=== PATIENT | female | born 1990 | race Caucasian/White ===

== ENCOUNTER 2021-09-25 14:49 | Inpatient (IN) | payer OTHER ==
[~2021-09-25 14:49] MED LIST: Bupivacaine/Epinephrine 0.25% 30 ML VIAL ONE; ePHEDrine Sulfate 50 MG/10 ML VIAL ONE
[2021-09-25] MEDS ORDERED: hydrALAZINE 20 MG/ML VIAL SLOW IVP PRN ×2 (15:28→20:54)
[2021-09-25] MEDS ORDERED: Butorphanol Tartrate 1 MG/ML VIAL SLOW IVP PRN (15:28)
[2021-09-25] MEDS ORDERED: Acetaminophen 500 MG TAB PO PRN (15:28)
[2021-09-25] MEDS ORDERED: HYDROcodone/Acetaminophen 5/325 mg Tablet PO PRN ×4 (15:28→20:54)
[2021-09-25] MEDS ORDERED: Ondansetron PF 4 MG/2 ML Vial IVP PRN ×3 (15:28→20:54)
[2021-09-25] MEDS ORDERED: Ibuprofen 800 MG TAB PO PRN (15:28)
[2021-09-25] MEDS ORDERED: Diphenoxylate HCl/Atropine Tablet PO PRN (15:28)
[2021-09-25] MEDS ORDERED: Promethazine HCl 25 MG/ML VIAL IM PRN ×2 (15:28→16:59)
[2021-09-25] MEDS ORDERED: Lidocaine 1% (PF) 30 ML VIAL SC PRN (15:28)
[2021-09-25] MEDS ORDERED: Methylergonovine 0.2 MG/ML VIAL IM PRN (15:28)
[2021-09-25] MEDS ORDERED: Carboprost 250 MCG/ML AMP IM PRN (15:28)
[2021-09-25] MEDS ORDERED: NS w/ Oxytocin 30 units 500 ML IV SCH ×2 (15:30)
[2021-09-25] MEDS ORDERED: Lactated Ringer's 1,000 ML IV SCH (15:30)
[2021-09-25 15:48] VITALS: BMI 24.6
[2021-09-25 15:50] LABS: Hemoglobin 12.8 g/dL (12.0-15.5); Mean Corpuscular HGB CONC 35.4 g/dL (32.0-36.0); Mean Corpuscular Hemoglobin 30.1 pg (27.0-33.0); Mean Corpuscular Volume 85.2 fl (81.6-98.3); Mean Platelet Volume 11.1 fl (7.4-10.4); Platelet Count 246 10x3/uL (150-450); RBC Distribution Width 13.1 % (11.5-14.5); Red Blood Cell (RBC) Count 4.25 10x6/uL (3.90-5.03); White Blood Cell (WBC) Count 11.2 10x3/uL (3.5-10.5)
[2021-09-25] MEDS ORDERED: Fentanyl 2 mcg/Bup 0.1% Cadd 100 ML ONE (16:10)
[2021-09-25 16:24] LABS: Hep B Surf Ag Non-Reactive S/CO (NonReactive); Syphilis Antibody Nonreactive (Nonreactive); Syphilis Antibody Index 0.07 S/CO (<1.00 Non-Reactive)
[2021-09-25] MEDS ORDERED: PHENYLEPHRINE-NS 100 MCG/ML 10 ML SYRINGE ONE (16:43)
[2021-09-25] MEDS ORDERED: diphenhydrAMINE 50 MG/ML VIAL IVP PRN (16:59)
[2021-09-25] MEDS ORDERED: ePHEDrine Sulfate 50 MG/10 ML VIAL SLOW IVP PRN (16:59)
[2021-09-25] MEDS ORDERED: Moisturizing Cream (Eucerin) 113 GM JAR TOP PRN (16:59)
[2021-09-25] MEDS ORDERED: Acetaminophen 325 MG TAB PO PRN (16:59)
[2021-09-25] MEDS ORDERED: Lactated Ringer's 500 ML IV PRN (16:59)
[2021-09-25] MEDS ORDERED: Naloxone HCl 0.4 mg/ml Vial IVP PRN ×2 (16:59)
[2021-09-25] MEDS ORDERED: Fentanyl 2 mcg/Bupivacaine 0.1% Cassette 100 ML EPIDURAL SCH (17:00)
[2021-09-25] MEDS ORDERED: Communication Order-Pharmacy FS SCH (17:00)
[2021-09-25] MEDS ORDERED: NS w/ Oxytocin 30 units 500 ML ONE (19:05)
[2021-09-25] MEDS ORDERED: Preparation H Ointment 28 GM TUBE PR PRN (20:54)
[2021-09-25] MEDS ORDERED: Bisacodyl 10 MG SUPP PR PRN (20:54)
[2021-09-25] MEDS ORDERED: Boostrix 0.5 ML (Tdap) VIAL IM ONE (20:54)
[2021-09-25] MEDS ORDERED: diphenhydrAMINE 25 MG CAP PO PRN (20:54)
[2021-09-25] MEDS ORDERED: Benzocaine-Menthol 82.5 ML CAN TOP PRN (20:54)
[2021-09-25] MEDS ORDERED: Milk Of Magnesia 30 ML UDCUP PO PRN (20:54)
[2021-09-25] MEDS ORDERED: Lanolin Ointment 7 GM TUBE TOP PRN (20:54)
[2021-09-25] MEDS: Docusate 100 MG CAP PO SCH (21:49)
[2021-09-25] MEDS: Ibuprofen 800 MG TAB PO SCH (21:49)
[2021-09-25 22:09] LABS: SARS-CoV-2 NAA Rapid Test Not Detected (NotDetected)
[2021-09-26] MEDS: Ibuprofen 800 MG TAB PO SCH ×2 (05:48→14:28)
[2021-09-26] MEDS ORDERED: Prenatal Vitamin 1 TAB PO SCH (09:00)
[2021-09-26] MEDS: Ferrous Sulfate 325 MG TAB PO SCH ×2 (09:10→17:56)
[2021-09-26] MEDS: Docusate 100 MG CAP PO SCH (09:11)
[2021-09-26 16:35] VITALS: TEMP 98.2
[2021-09-26 20:59] VITALS: BP 122/59
== END 2021-09-26 20:20 | disposition home or self-care (01) | DRG 768 ==
LOC: CSHLD 14:49 → CSHPP 21:37
PROVIDERS: ADMIT Student in an Organized Health Care Education/Training Program; ATTEND Student in an Organized Health Care Education/Training Program
PROC: 10E0XZZ Delivery of Products of Conception, External Approach (ICD-10-PCS; principal; 2021-09-25)
PROC: 0UQJXZZ Repair Clitoris, External Approach (ICD-10-PCS; 2021-09-25)
DX: O26.893 Other specified pregnancy related conditions, third trimester (principal); Z37.0 Single live birth; Z67.11 Type A blood, Rh negative; Z3A.41 41 weeks gestation of pregnancy; Z20.822 Contact with and (suspected) exposure to COVID-19; O71.89 Other specified obstetric trauma
CPT/HCPCS: 36415; 85027; 86780; 86850; 86870; 86900; 86901; 87340; J2590; U0002